=== PATIENT | female | born 1935 | race Caucasian/White ===

== ENCOUNTER 2023-05-16 17:24 | Emergency (ER) | payer MEDICARE, BC, SELFPAY ==
[2023-05-16 17:30] VITALS: BP 178/81; PULSE 79; RESP 18; TEMP 36.1; O2SAT 98; BMI 21.5
--- NOTE | 2023-05-16 17:33 | ED.GENADULT ---
HPI - General Adult General Date Seen: 05/16/23 Chief complaint: Laceration/Wound Stated complaint: right thumb lac, on blood thinners Time Seen by Provider: 05/16/23 17:28 Source: patient Mode of arrival: ambulatory Limitations: no limitations History of Present Illness HPI narrative: Patient is an 87-year-old woman who picked up the lid of the cat food can about an hour ago and sustained a small laceration on the tip of her right thumb. She has not been able to get it to stop bleeding with pressure. She is anticoagulated. No other complaints. Believes her tetanus to be up-to-date. Related Data Home Medications Medication Instructions Recorded Confirmed amlodipine 5 mg tablet 5 mg PO DAILY 05/16/23 05/16/23 ascorbic acid (vitamin C) 500 mg 500 mg PO DAILY 05/16/23 05/16/23 chewable tablet (Acerola C) aspirin 81 mg tablet,delayed 81 mg PO DAILY 05/16/23 05/16/23 release (Adult Aspirin Regimen) calcium carbonate 600 mg-vitamin cap PO 05/16/23 D3 10 mcg (400 unit) capsule glucosamine-chondroitin PO 05/16/23 levothyroxine 75 mcg tablet 75 mcg PO DAILY 05/16/23 05/16/23 (Euthyrox) melatonin 05/16/23 omega-3 fatty acids PO 05/16/23 sertraline 25 mg tablet (Zoloft) 25 mg PO DAILY 05/16/23 05/16/23 vitamin B complex (Complex B-100 1 tab PO DAILY 05/16/23 05/16/23 tablet,extended release) Allergies Allergy/AdvReac Type Severity Reaction Status Date / Time No Known Drug Allergies Allergy Verified 05/16/23 17:34 PFSH PFS Social History Smoking Status: Never smoker How often do you have a drink containing alcohol: never AUDIT-C Alcohol total score: 0 Non-prescribed substance use: denies use Exam Narrative: Exam Narrative: Vital signs reviewed In general, alert, well-appearing elderly woman. Gets around easily. Extremities: Examination of the right thumb shows a small flap laceration perhaps half a cm in total size with some venous bleeding. Distal CMS normal. Const: Vital Signs, click to edit/add: Vital Signs - 24 hr 05/16/23 17:30 Temperature 96.9 F L Pulse Rate [Pulse Oximeter] 79 Respiratory Rate 18 Blood Pressure [Le ft Upper Arm] 178/81 H Pulse Oximetry 98 Oxygen Delivery Me thod Room Air Course Course ED Course: The wound itself does not need repaired, it was is small and will heal without intervention. I recommended that we place a dressing with Gelfoam to help with bleeding. Leave this on for couple of days and then okay to remove. Return for any signs of infection or if ongoing bleeding despite treatment. Vital Signs Vital signs: Initial Vital Signs Temperature 96.9 F L 05/16/23 17:30 Temperature Source Temporal Artery Scan 05/16/23 17:30 Pulse Rate 79 05/16/23 17:30 Respiratory Rate 18 05/16/23 17:30 Blood Pressure 178/81 H 05/16/23 17:30 Blood Pressure Mean 113 H 05/16/23 17:30 Blood Pressure Position Supine 05/16/23 17:30 Pulse Oximetry 98 05/16/23 17:30 Oxygen Delivery Method Room Air 05/16/23 17:30 Vital Signs Temperature 96.9 F L 05/16/23 17:30 Pulse Rate 79 05/16/23 17:30 Respiratory Rate 18 05/16/23 17:30 Blood Pressure 178/81 H 05/16/23 17:30 Pulse Oximetry 98 05/16/23 17:30 Oxygen Delivery Method Room Air 05/16/23 17:30 Temperature 96.9 F L 05/16/23 17:30 Pulse Rate 79 05/16/23 17:30 Respiratory Rate 18 05/16/23 17:30 Blood Pressure 178/81 H 05/16/23 17:30 Pulse Oximetry 98 05/16/23 17:30 Oxygen Delivery Method Room Air 05/16/23 17:30 Discharge Plan Discharge Clinical Impression: Laceration of right thumb Patient Disposition: Home, Self-Care Condition: Stable Instructions: Laceration Without Closure (ED) Additional Instructions: I would recommend leaving this dressing on for the next couple of days and then carefully remove. If you develop signs of infection or bleeding continues despite treatment return to the emergency department. Prescriptions: No Action amlodipine 5 mg tablet 5 mg PO DAILY ascorbic acid (vitamin C) [Acerola C] 500 mg tablet,chewable 500 mg PO DAILY aspirin [Adult Aspirin Regimen] 81 mg tablet,delayed release (DR/EC) 81 mg PO DAILY Complex B-100 Tablet Extended Release 1 tab PO DAILY calcium carbonate-vitamin D3 600 mg-10 mcg (400 unit) capsule PO glucosamine-chondroitin [Cosamin DS] PO levothyroxine [Euthyrox] 75 mcg tablet 75 mcg PO DAILY melatonin omega-3 fatty acids [Fish Oil] PO sertraline [Zoloft] 25 mg tablet 25 mg PO DAILY Follow Up/Referrals: Amarjit Nye MD [Referring] - Stand Alone Forms: [facility] Info Instructions
--- NOTE | 2023-05-16 18:24 | ED.NURSE ---
dressing of gel foam and coban to pt's R thumb, pt bled through dressing, more gel foam added and redressed. after 20 minutes dressing remains d/i.
== END 2023-05-16 18:27 | disposition home or self-care (01) ==
LOC: ED 18:11
PROVIDERS: Emergency Provider Emergency Medicine; PCP Family Medicine
DX: S61.011A Laceration without foreign body of right thumb without damage to nail, initial encounter (principal); W26.8XXA Contact with other sharp object(s), not elsewhere classified, initial encounter
CPT/HCPCS: 99282; 99283

== ENCOUNTER 2024-01-27 12:17 | Emergency (ER) | payer MEDICARE, BC, SELFPAY ==
[2024-01-27 12:39] VITALS: BP 149/74; PULSE 71; RESP 18; TEMP 36.5; O2SAT 98; BMI 21.5
--- NOTE | 2024-01-27 13:26 | CRLHL7_ITS ---
For Patients: As a result of the Cures Act, medical imaging exams and procedure reports are released immediately into your electronic medical record. You may view this report before your referring provider. If you have questions, please contact your health care provider. INDICATION: Pain. TECHNIQUE: Thoracic spine two views. COMPARISON: Chest radiograph same day. FINDINGS: Bone demineralization and mild multilevel degenerative changes. Compression fractures of the T7 and T12 vertebra appear chronic in nature. No definite radiographic evidence of acute thoracic spine fracture. No additional osseous abnormality. IMPRESSION: Chronic appearing compression fractures of the T7 and T12 vertebra. CT would be recommended if further workup for acute fracture is deemed necessary. Dictated by Enrico Murillo MD @ 01/27/2024 2:35:12 PM (Electronically Signed)
--- NOTE | 2024-01-27 13:27 | CRLHL7_ITS ---
For Patients: As a result of the Century Cures Act, medical imaging exams and procedure reports are released immediately into your electronic medical record. You may view this report before your referring provider. If you have questions, please contact your health care provider. INDICATION: Pain. TECHNIQUE: Chest 2 views. COMPARISON: Thoracic radiographs same day. FINDINGS: No pneumothorax or pleural effusion. Lungs are clear. Cardiac and mediastinal contours are within normal limits. Upper abdomen and osseous structures as imaged show no acute abnormality. There are compression fractures of the T7 and T12 vertebra that appear chronic in nature. No definite radiographic evidence of acute osseous abnormality. Bone demineralization and degenerative changes. Aortic stent graft incompletely visualized. IMPRESSION: No evidence of acute cardiopulmonary disease. Dictated by Enrico Murillo MD @ 01/27/2024 2:33:22 PM (Electronically Signed)
--- NOTE | 2024-01-27 13:29 | ED_ITS ---
HPI - General Adult General Chief complaint: Back Injury/Pain Stated complaint: Back pain Time Seen by Provider: 01/27/24 12:18 History of Present Illness HPI narrative: Patient is an 88 year white female that developed periscapular pain with movement and with laying down over the last few days. She has not had any anterior chest pain no diaphoresis or nausea. She reports she had lumbar compression fractures in thoracic compression fractures in the past. She has had no leg swelling edema, bleeding or clotting problems, she has had no trauma or injury. She is very comfortable lying flat but if she moves or twists she feels some pain in her periscapular area on the left Related Data Home Medications ?Medication ?Instructions ?Recorded ?Confirmed amlodipine 5 mg tablet 5 mg PO DAILY 05/16/23 01/27/24 ascorbic acid (vitamin C) 500 mg 500 mg PO DAILY 05/16/23 01/27/24 chewable tablet (Acerola C) aspirin 81 mg tablet,delayed 81 mg PO DAILY 05/16/23 01/27/24 release (Adult Aspirin Regimen) calcium carbonate 600 mg-vitamin cap PO 05/16/23 D3 10 mcg (400 unit) capsule levothyroxine 75 mcg tablet 75 mcg PO DAILY 05/16/23 01/27/24 (Euthyrox) melatonin 05/16/23 vitamin B complex (Complex B-100 1 tab PO DAILY 05/16/23 01/27/24 tablet,extended release) Previous Rx's ?Medication ?Instructions ?Recorded tramadol 50 mg tablet 50 mg PO Q8H PRN pain #14 tabs 01/27/24 Allergies Allergy/AdvReac Type Severity Reaction Status Date / Time No Known Drug Allergies Allergy Verified 05/16/23 17:34 Review of Systems Status of ROS: Reports: 6 or more systems reviewed and unremarkable except as noted in History and below PFSH PFS Social History Smoking Status: Never smoker How often do you have a drink containing alcohol: never AUDIT-C Alcohol total score: 0 Non-prescribed substance use: denies use service: No Exam Narrative: Exam Narrative: Objective: Vital signs look within normal limits O2 sat excellent 90% Alert orient x3 no distress talk in even unlabored sentences Rolling the patient from a gurney and looking at her back she has some mild left periscapular pain, mild paravertebral tenderness in her thoracic spine at about the mid scapular level. No bleeding, bruising or ecchymosis. Lower extremities show more normal motion, pulse is regular Const: Vital Signs, click to edit/add: Vital Signs - 24 hr 01/27/24 12:39 Temperature 97.7 F Pulse Rate [Pulse Oximeter] 71 Respiratory Rate 18 Blood Pressure [Ri t Upper Arm] 149/74 H Pulse Oximetry 98 Oxygen Delivery Me thod Room Air Course Vital Signs Vital signs: Initial Vital Signs Temperature 97.7 F 01/27/24 12:39 Temperature Source Temporal Artery Scan 01/27/24 12:39 Pulse Rate 71 01/27/24 12:39 Respiratory Rate 18 01/27/24 12:39 Blood Pressure 149/74 H 01/27/24 12:39 Blood Pressure Mean 99 01/27/24 12:39 Blood Pressure Position Sitting 01/27/24 12:39 Pulse Oximetry 98 01/27/24 12:39 Oxygen Delivery Method Room Air 01/27/24 12:39 Vital Signs Temperature 97.7 F 01/27/24 12:39 Pulse Rate 71 01/27/24 12:39 Respiratory Rate 18 01/27/24 12:39 Blood Pressure 149/74 H 01/27/24 12:39 Pulse Oximetry 98 01/27/24 12:39 Oxygen Delivery Method Room Air 01/27/24 12:39 Temperature 97.7 F 01/27/24 12:39 Pulse Rate 71 01/27/24 12:39 Respiratory Rate 18 01/27/24 12:39 Blood Pressure 149/74 H 01/27/24 12:39 Pulse Oximetry 98 01/27/24 12:39 Oxygen Delivery Method Room Air 01/27/24 12:39 Medications Administered Medications: Discontinued Medications Generic Name Dose Route Start Last Admin Trade Name Freq PRN Reason Stop Dose Admin Tramadol HCl 50 mg 01/27/24 13:27 01/27/24 13:42 Tramadol Hcl 50 Mg Tablet PO 01/27/24 13:28 50 mg ONCE ONE Administration Medical Decision Making MDM Narrative Medical decision making narrative: [age] white female with periscapular pain on the left. I think at thi s time would be reasonable to get an x-ray of her chest and her thoracic spine. Disposition pending findings, will give her some oral tramadol now. Perhaps even some prednisone for few days would be helpful in some tramadol. She does seemed to have some success with plain Tylenol but not very much discomfort relief. Addendum 2:38 p.m.: The patient reports she gets Prolia injections in just had 1. This is done for osteoporosis. She has chronic appearing T7 and T12 compression fractures. I think most of her back pain is lateral and may be more of a paravertebral muscle strain. I think she can continue the Prolia. I would give her tramadol as needed. She can take Tylenol as well. Ice to the affected area of her back couple times a day if possible, would recommend follow-up with primary care in the next week to 10 days for reassessment Discharge Plan Discharge Clinical Impression: Acute thoracic back pain, Compression fracture of thoracic vertebra Patient Disposition: Home w/ Parent or Adult Condition: Improved Additional Instructions: Light activity, ice to the area that is affected 5 minutes to 10 minutes at a time 3 times a day if possible, Tylenol as needed, tramadol for more pain if needed, recheck with regular doctor in the next 3-5 days. Activity Level: Light activity Discharge Diet: Regular Prescriptions: New tramadol 50 mg tablet 50 mg PO Q8H PRN (Reason: pain) Qty: 14 0RF No Action amlodipine 5 mg tablet 5 mg PO DAILY ascorbic acid (vitamin C) [Acerola C] 500 mg tablet,chewable 500 mg PO DAILY aspirin [Adult Aspirin Regimen] 81 mg tablet,delayed release (DR/EC) 81 mg PO DAILY Complex B-100 Tablet Extended Release 1 tab PO DAILY calcium carbonate-vitamin D3 600 mg-10 mcg (400 unit) capsule PO levothyroxine [Euthyrox] 75 mcg tablet 75 mcg PO DAILY melatonin Follow Up/Referrals: Katharine Del Angel DO [Primary Care Provider] - Stand Alone Forms: [employer] Info Instructions
[2024-01-27] MEDS: TRAMADOL HCL 50 MG TABLET PO (13:42)
== END 2024-01-27 14:51 | disposition home or self-care (01) ==
LOC: ED 14:16
PROVIDERS: Emergency Provider Family Medicine; PCP Family Medicine
DX: M54.6 Pain in thoracic spine (principal); S22.000A Wedge compression fracture of unspecified thoracic vertebra, initial encounter for closed fracture
CPT/HCPCS: 71046; 72070; 99284; A9270

== ENCOUNTER 2024-04-29 13:45 | Outpatient (RCR) | payer MEDICARE, BC, SELFPAY | END 2024-08-27 23:59 | disposition home or self-care (01) | PROVIDERS: PCP Family Medicine; Visit Provider Family Medicine | DX: Z87.81 Personal history of (healed) traumatic fracture (principal); M54.6 Pain in thoracic spine; Z51.89 Encounter for other specified aftercare | CPT/HCPCS: 97110; 97116; 97140; 97162 ==

== ENCOUNTER 2025-01-26 09:54 | Outpatient (CLI) | payer MEDICARE, BC, SELFPAY ==
[2025-01-26 10:34] LABS: Chloride* 103 mmol/L (96-114); Potassium* 4.0 mmol/L (3.6-5.1); Sodium* 137 mmol/L (135-149)
[2025-01-26 10:37] LABS: Blood Urea Nitrogen* 29 mg/dL (7-30); Creatinine* 1.5 mg/dL (0.5-1.5); Estimated Glomerular Filt Rate 34 ml/min
[2025-01-26 10:38] LABS: Anion Gap 5 mEq/L (7-15); Calcium* 9.4 mg/dL (8.4-10.6); Carbon Dioxide* 29 mmol/L (20-32); Glucose* 89 mg/dL (60-115)
[2025-01-30 07:00] LABS: eGFR by CKD-EP 33 (>=60)
== END 2025-01-26 09:55 | disposition home or self-care (01) ==
PROVIDERS: PCP Family Medicine; Visit Provider Internal Medicine Nephrology
DX: N18.32 Chronic kidney disease, stage 3b (principal)
CPT/HCPCS: 36415; 80048; 82565; 82610

== ENCOUNTER 2025-02-27 12:20 | Emergency (ER) | payer MEDICARE, BC, SELFPAY ==
--- OUTSIDE RECORDS SUMMARY | 2025-02-10 14:30 | XMS_ITS | Encounter Summary ---
Author Organization [facility] Address [address] [place] [address] Care Team Providers Care [employer] Name Role Phone Katharine Del Angel DO Primary Care Provider [phone] Reason for Visit * Reason Comments Follow-up Encounter Details Date Type Department Care Team (Late st Contact Info) Description 02/10/2025 2:30 PM CDT Office Visit [facility] [address] [place] [address] Samir Greco MD [address] [place] [address] Stage 3b chronic kidney disease (HCC) (Primary Dx); Hypertensive chronic kidney disease with stage 1 through stage 4 chronic kidney disease, or unspecified chronic kidney disease; Renal artery stenosis (HCC) Social History Tobacco Use Types Packs/Day Years Used Date Smoking Tobacco: Former Cigarettes Smokeless Tobacco: Never Alcohol Use Standard Drinks/Week Comments Not Currently 0 (1 standard drink = 0.6 oz pur e alcohol) Comments Unknown Sex and Gender Information Value Date Recorded Sex Assigned at Not on file Legal Sex Female 11:39 AM EDT Gender Identity Not on file Sexual Orientation Not on file documented as of this encounter Last Filed Vital Signs Vital Sign Reading Time Taken Comments Blood Pressure 136/72 02/10/2025 2:31 PM CDT Pulse 87 02/10/2025 2:31 PM CDT Temperature - - Respiratory Rate - - Oxygen Saturation 98% 02/10/2025 2:31 PM CDT Inhaled Oxygen Concentration - - Weight 50.8 kg (112 lb) 02/10/2025 2:31 PM CDT Height 152.4 cm (5') 02/10/2025 2:31 PM CDT Body Mass Index 21.87 02/10/2025 2:31 PM CDT documented in this encounter Patient Instructions * Patient Instructions* Zahraa Wilson - 02/10/2025 2:30 PM CDT Ardie, Your blood pressure is ok without the blood pressure medication. Your kidney function is stable. We will make no changes and you can remain off the amlodipine. Continue to monitor your blood pressure. Follow-up in about 6 months with labs prior to the visit. Phil Greco MD We will contact you to schedule your 6 month follow up when the schedule becomes available. Labs should be completed 1-2 weeks prior. They will be faxed to [facility] Dr. Greco/ALBERT Vital documented in this encounter Progress Notes * Samir Greco MD - 02/10/2025 2:30 PM CDT Images from the original note were not included. Patient: Meghan Chery Date of : 1935 Chart: [id number] PCP: Katharine Del Angel DO Date of Service: 02/10/2025 Chief Complaint: CKD Stage 3b, LISANDRA, HTN Subjective: Ms. Chery was initially referred for abnormal kidney function. She has a history of chronic low back pain, hypertension, hyperlipidemia, peripheral artery disease and retinal artery occlusion. She had an endovascular repair of an abdominal aortic aneurism in April of 2017. She was also found tohave bilateral renal artery stenosis. The right renal artery was stented. Her renal function was normal preop and immediately postop. However by about a month postoperatively her creat was significantly elevated in the 1.6 range and peaked at 1.9 in August. She had been started on lisinopril at some point postoperatively and this was increased to 10 mg per day at one month postop. Her UA one month postop was wnl. She became hypertensive postoperatively and the bp came under control onlisinopril. Dr. Cintron saw her in October of 2017 and felt that her hui was likely either due to cholesterol emboli at the time of surgery or to hemodynamic effects of lisinopril in a patient with vascular disease.Dr. Zambrano did a a renal doppler that showed significant renal artery stenosis on the left, normalresistive indices. This had been seen at the time of surgery but only the right sided stenosis was stented. At a prior visit, she was mildly hypotensive, dizzy, and had fallen. Her diastolic BP's were as lowas 40's even. I reduced her lisinopril to 5mg and her BP was 120's/60's most of the time, some 110's or 130's systolic and rare 140. She was persistently hyperkalemic on lisinopril even low dose so in November 2022 I stopped this and put her on amlodipine. She is on 5mg and is tolerating this well without LE edema or any other side effects. Today, she reports running out of amlodipine a month ago and not refilling (we had talked about possibly trying off all BP medication). Her BP is slightly higher off, but is still 120's-130's/70's the majority of the time (two values 150/80 on stressful days). She feels well and had a great time with the wedding for her granddaughter in her yard. She has no CP, SOB, edema. Her Cr is stable at 1.5. SH: Two daughters, Tigre (lives up by Dorota [place]) and Carolin (lives locally) The following portions of the patient's chart were reviewed in this encounter and updated as appropriate: Tobacco Allergies Meds Problems Med Hx Surg Hx Fam Hx Active Problems Patient Active Problem List Diagnosis Stage 3b chronic kidney disease (HCC) Hyperkalemia Abdominal aortic aneurysm without rupture (HCC) Chronic low back pain Hypertensive chronic kidney disease with stage 1 through stage 4 chronic kidney disease, or unspecified chronic kidney disease Hypothyroidism Mixed hyperlipidemia Osteoporosis Renal artery stenosis (HCC) Right carotid artery stenosis Obstructive sleep apnea Review of Systems Patient denies chest pain, SOB at rest, nausea/vomiting, and fever/chills. Taking? Provider LT amLODIPine (NORVASC) 5 MG tablet Samir Greco MD Take 1 tablet (5 mg total) by mouth in the morning. Patient not taking: Reported on 02/10/2025 ascorbic acid (VITAMIN C) 250 MG tablet Kary Islas MD Take 250 mg by mouth 1 (one) time each day aspirin (ST AKIN) 81 MG EC tablet Kary Islas MD Take 81 mg by mouth in the morning. b complex vitamins capsule Kary Islas MD Take 1 capsule by mouth 1 (one) time each day Ferrous Sulfate (IRON PO) Kary Islas MD Take 1 tablet by mouth in the morning. levothyroxine (SYNTHROID, LEVOTHROID) 75 MCG tablet Kary Islas MD Take 75 mcg by mouth in the morning. Take 37.5 Mcg once a week and then 75 Mcg the other 6 days. . NON FORMULARY Kary Islas MD Take 1 packet by mouth 1 (one) time each day [employer] ([employer]) Nutritional Supplements (COMPLETE PROTEIN/VITAMIN SHAKE PO) Kary Islas MD Take by mouth Orbisonia-3 Fatty Acids (Fish Oil) 1200 MG capsule delayed-release Kary Islas MD Take by mouth Allergies Allergen Reactions Tramadol Itching Physical Exam BP 136/72 (BP Location: Right upper arm, Patient Position: Sitting, BP Cuff Size: Adult) Pulse 87 Ht 5' (1.524 m) Wt 112 lb (50.8 kg) SpO2 98% BMI 21.87 kg/m?? CONSTITUTIONAL: appears well today EYES: pupils equal, sclerae not icteric. RESPIRATORY: Clear to auscultation bilaterally, nl effort CARDIOVASCULAR: Regular rate and rhythm, no murmurs. no leg edema and stable GASTROINTESTINAL: bowel sounds active, not distended PSYCHIATRIC: Alert and pleasant INTEGUMENT: No visible rash on exposed skin MUSCULOSKELETAL: four limbs, no contractures Chemistry and Bone Mineral Lab Units 01/26/25 0000 10/11/24 1325 02/10/24 1402 12/08/23 13212/08/23 0000 SODIUM mEq/L 137 141 141 142 142 POTASSIUM mEq/L 4.0 4.3 4.7 4.1 4.1 CHLORIDE 103 103 105 106 106 CO2 mmol/L 29 30 26 25 25 ANION GAP -- -- 10 11 -- CALCIUM mg/dL 9.4 9.8 8.9 9.8 9.8 PHOSPHORUS mg/dL -- 3.7 -- 3.6 3.6 PTH pg/mL -- 50 -- -- -- GLUCOSE mg/dL 89 111* 99 94 94 ALBUMIN g/dL -- 3.9 -- 4.2 4.2 BUN mg/dL 29 34* 17 27* 27* CREATININE mg/dL 1.5 1.54* 1.43* 1.33* 1.33* EGFR 34 32* 36* 39* 39* CBC and Iron Studies Lab Units 10/11/24 1325 02/10/24 1402 12/08/23 1327 12/08/23 0000 HEMOGLOBIN g/dL 11.4* 10.8* 11* 11.0* MCV fL -- 95 95 95 FERRITIN ng/mL -- -- 185* 185.0* 185.0* TIBC ug/dL -- -- 274 274 IRON SATURATION % -- -- 20 -- Urine Lab Units 10/11/24 1433 ALB MG/G CREAT UR mg/g creat 23.5 Chemistry and Bone Mineral Lab Units 01/26/25 0000 EGFR BY CYSTATIN C 33* Imaging: CT Abd/Pelvis without contrast 07/21/2022: Mild scarring is present in both lung bases. There is no pleural effusion or basilar pneumothorax. No evidence of rib fracture deformity. Normal noncontrast enhanced liver. No calcified gallstones orbiliary obstruction. Pancreas is normal. Normal spleen. Stomach is distended. Adrenal glands normal. Simple cysts left kidney are unchanged. Unremarkable right kidney. No renal stone or hydronephrosis. Postop changes of aorto bi-iliac stent graft. Decreased size of the [place] aneurysm. No adenopathy. No free air, free fluid or bowel obstruction. Bladder normal. No pelvic soft tissue mass. Postop changes of hysterectomy. No abdominal wall mass or hernia. Chronic appearing compression deformitiesinvolving L4 L1 and T12. In the left upper quadrant, there is mild prominence of the jejunal wall. Renal Duplex 11/2017: IMPRESSION: 1. Patent right renal artery stent. 2. Elevated left renal artery velocities of 240 cm/s, which is indicative of a hemodynamically significant stenosis. 3. Abnormally elevated renal to aortic ratios are noted bilaterally, however this is likely due to low measured aortic velocity. Assessment and Plan: 1. CKD Stage 3b: 2/2 HUI and renovascular disease, may have underlying hypertensive nephrosclerosisas well. She had normal renal function before endovascular repair of an abdominal aortic aneurism. Creatinine was elevated at one month postoperatively and peaked in August 2017. Her urine analyseshave been consistently normal and urine protein has been negative. Renal function overall stable after although quite variable with Cr 1.3-2.0 and has been 1.5 range since being off lisinopril. -Renal function stable, has improved since being off ACEI and UA was normal in 2022 with no proteinuria -No albuminuria off ACEI - reassuring -KFRE suggests 2.4% risk of ESRD at 5 years, also reassuring (especially at age 89). This was shared with her today. -Trend renal function and CKD labs to monitor metabolic complications of CKD. 2. Hypertension with hypertensive chronic kidney disease. She is monitoring at home and BP control is actually controlled fairly well (BP 120's-130's/70's) without any BP therapy. 3. Hyperkalemia - resolved off ACEI. Monitor. 4. 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 She is on iron supplement. 5. LISANDRA: pt noted to have bilateral lisandra at the time of the AAA repair. She had stenting of the rightrenal artery. Renal doppler done on in November 2017 after this showed patent right renal artery stent. The left renal artery velocity was 240 cm/s indicating significant stenosis, had normal resistive indices. Left kidney is 8.9 cm and right kidney 9.9 cm. -Would not recommend intervention for L LISANDRA, data does not support this as Cr stable and BP is controlled 6. AAA without rupture - s/p EVAR by Dr. Zambrano. Asymptomatic. Continue good BP control. Return in about 6 months (around 08/13/2025) for follow-up with MD. Samir Greco MD [facility] Office: [phone] documented in this encounter Plan of Treatment Scheduled Orders Name Type Priority Associated Diagnoses Orde r Schedule Renal function panel Lab Routine Stage 3b chronic kidney disease (HCC) Expected: 07/31/2025 (Approximate), Expires: 02/10/2026 Hemoglobin Lab Routine Stage 3b chronic kidney disease (HCC) Expected: 07/31/2025 (Approximate), Expires: 02/10/2026 PTH, intact Lab Routine Stage 3b chronic kidney disease (HCC) Expected: 07/31/2025 (Approximate), Expires: 02/10/2026 documented as of this encounter Visit Diagnoses Diagnosis Stage 3b chronic kidney disease (HCC)- Primary Hypertensive chronic kidney disease with stage 1 through stage 4 chronic kidney disease, or unspecified chronic kidney disease Renal artery stenosis (HCC) documented in this encounter Care Teams [employer] Relationship Specialty Start Date End Date Katharine Del [place] [address] PCP - General Family Medicine 12/17/23 documented as of this encounter
--- OUTSIDE RECORDS SUMMARY | 2025-02-27 12:23 | XMS_ITS | Clinical Summary ---
Author Organization [facility] Address [address] [place] [id number] Care Team Providers Care Public Transit Specialist Name Role Phone Katharine Del Angel Primary Care Provider [phone] Allergies Active Allergy Reactions Criticality Noted Date Comments Tramadol Itching 02/05/2024 Medications melatonin 5 mg capsuleIndications :Other insomnia Take 1 Capsule (5 mg) by mouth at bedtime. 0 12/06/19 22 Active polyethylene glycoL (MIRALAX) 17 gram/scoop powderIndications: Chronic constipation 17g every other day 510 g 3 07/24/19 23 Active Additional Information Patient taking differently: DAILY PRN, 17g every other day, Reported on 02/05/2024 B Complex-Minerals tab Take by mouth once daily. 0 08/14/19 23 Active flynbceo-lteu-NI-c alcium-mins (Women's Daily Formula) 18 mg iron-400 mcg-500 mg Ca tab Take by mouth once daily. 0 08/14/19 23 Active ascorbic acid, vitamin C, (Vitamin C) 500 mg tablet Take 1 Tablet (500 mg) by mouth two times daily with meals. 0 08/14/19 23 Active aspirin (ECOTRIN) 81 mg enteric coated tablet Take 1 Tablet (81 mg) by mouth once daily with a meal. 0 08/14/19 23 Active medication order composer Take 2 Tablets by mouth two times daily. Focus Factor 0 08/14/19 23 Active calcium carbonate-vitamin D3, 500 mg-400 units, (OSCAL 500 + D) tablet Take 1 Tablet by mouth two times daily before meals. 0 12/03/19 Active docusate (COLACE) 100 mg capsuleIndications :Chronic constipation Take 2 Capsules (200 mg) by mouth once daily. 360 Capsule 1 12/03/19 Active amLODIPine (NORVASC) 5 mg tabletIndications: HTN (hypertension) Take 1 Tablet (5 mg) by mouth once daily. 90 Tablet 3 02/26/20 Active ferrous sulfate, 65 mg elemental, tablet Take 325 mg by mouth once daily with a meal. Active psyllium husk (METAMUCIL ORAL) Take by mouth. Active multivit with iron,minerals (SUPER FRANK-MINS ORAL) Take by mouth. Activ e levothyroxine (SYNTHROID) 75 mcg tabletIndications: Acquired hypothyroidism Take 1 Tablet (75 mcg) by mouth before breakfast. 90 Tablet 3 02/11/20 Active Active Problems Problem Noted Date Diagnosed Date Osteoporosis of multiple sites 05/31/2022 Overview (05/31/2022): Dexa May 2022. Recommend treat. Apt 06/2022 to discuss. History compression fracture. 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 EVAR with Right renal artery stenting. Dr. Zambrano CHANNING 01/2008 AHI-18 positional 05/19/2014 Colon polyp 05/03/2014 Overview (05/03/2014): Colonoscopy 04/2014 polyp, no follow up needed Carotid stenosis, right 05/12/2013 Retinal artery branch occlusion of right eye Right carotid bruit 05/05/2013 Femoral bruit 05/05/2013 Retinal microembolism 05/05/2013 Hand arthritis 02/07/2011 Unspecified sleep apnea 11/27/2010 Osteopenia 08/27/2009 Shingles 06/22/2009 Unspecified hearing loss 01/27/2007 Actinic keratosis 01/27/2007 Mixed hyperlipidemia 01/20/2007 Unspecified hypothyroidism 01/20/2007 Renal artery stenosis, [place] Overview (04/29/2017): 04/27/2017- Right renal artery angioplasty/stenting. Dr. Zambrano Resolved Problems Problem Noted Date Diagnosed Date Resolved Date Disorder of bone and cartilage, unspecified 01/27/2007 09/26/2010 Overview (01/27/2007): osteopenia Immunizations Immunization Administration Dates Next Due AMB Influenza, IIV3 (Age >=3 years)(Flu Clinic O nly) 06/26/2011 Influenza, High-dose Inactivated 08/11/2016,04/13 Influenza, IIV3 (Age >=3 years) 05/06/2013,04/30 Pneumococcal Poly,23-Valent (Pneumovax) 05/06/20 13 Pneumococcal conj 13-Valent (Prevnar 13) 017 Td (Age >=7 Years) 02/14/1997 Td, Preservative Free (age >= 7 Years) 0 Tdap 08/11/2016 Family History Medical History Relation Name Comments Heart Disease Father d PA 59 yo Heart Disease Maternal Grandfather 89 yo PA Other Maternal Grandmother Bright' s Dz of kidney Arthritis Mother Cancer-breast Mother Other Mother d 94 yo Alzheim er's Arthritis Other RA in great aun t Relation Name Status Comments Father Maternal Grandfather Maternal Grandmother Mother Other Social History Tobacco Use Types Packs/Day Years Used Date Smoking Tobacco: Former Cigarettes 0.3 45 1 08/20/1967 - 06/19/2013 Smokeless Tobacco: Never Tobacco Cessation:Counseling Given: Yes Alcohol Use Standard Drinks/Week Comments Yes 0 (1 standard drink = 0.6 oz pure alcohol) rare glass of wine about once every 3 months PHQ-2 Answer Date Recorded PHQ-2 TOTAL SCORE 1 12/08/2023 Social Connections Answer Date Recorded Do you often feel lonely or isolated from those around you? 0 12/08/2023 Alcohol Use Answer Date Recorded How often do you have a drink containing alcohol ? 1 12/02/2022 How many drinks containing a lcohol do you have on a typical day when you are drinking? 0 12/02/2022 How often do you have five or more drinks on one occasion? 0 12/02/2022 Financial Resource Strain Answer Date R ecorded Difficulty of Paying Living Expenses 3 12/08/2023 Difficulty of Paying Living Expenses Not on file 12/08/2023 Food Insecurity Answer Date Recorded Do you worry your food will run out before you are able to buy more? 1 12/08/2023 Transportation Needs Answer Date Record ed Does lack of transportation keep you from medica l appointments? 1 12/08/2023 Does lack of transportation keep you from work, meetings or getting things that you need? 1 12/08/2023 Housing Stability Answer Date Recorded What is your housing situation today? 1 12/08/2023 Utilities Answer Date Recorded Do you have trouble paying f or utilities (for example, heat, electricity, water, phone)? 1 12/08/2023 Comments No Sex and Gender Information Value Date Recorded Sex Assigned at Not on file Legal Sex Female 5:49 AM SENIOR SOFTWARE DEVELOPMENT ENGINEER Gender Identity Not on file Sexual Orientation Not on file Occupation Industry Job Start Date Job End Date Not on file Not on file Not on file Not on file Obstetrics History Para Term AB IAB SAB Ectopic Multiple Livin g Live Births 6 5 5 0 1 0 1 0 0 5 Date Outcome GA Total Labor Labor/2nd/3rd Weight Sex Type Anes PTL Mary A1 A5 Name Clin SAB Term Term Term Term Term Last Filed Vital Signs Vital Sign Reading Time Taken Comments Blood Pressure 124/72 02/10/2024 1:09 PM CDT Pulse 83 02/10/2024 1:09 PM CDT Temperature 37.1 C (98.7 F) 04/20/2022 4:54 PM CDT Respiratory Rate 16 04/20/2022 4:54 PM CDT Oxygen Saturation 98% 02/10/2024 1:09 PM CDT Inhaled Oxygen Concentration - - Weight 49.9 kg (110 lb) 02/10/2024 1:09 PM CDT Height 152.4 cm (5') 12/08/2023 11:41 AM CDT Body Mass Index 21.48 12/08/2023 11:41 AM CDT Plan of Treatment Health Maintenance Due Date Last Done Comments Zoster (shingles) series for age 50+ (1 of 2) 1987 RSV vaccine for adults or (1 - 1-dose 75+ series) 2012 COVID-19 vaccine series ( - season) 2024 BMI (ht and wt on same day) for age 18+ 12/07/2024 12/08/2023, 03/26/2023, 01/23/2023, Additional history exists Medicare Wellness for age 65+ 12/08/2024 12/08/2023, 12/02/2022, 10/20/2018, Additional history exists Depression screening for age 12+ 12/09/2024 12/10/2023, 12/09/2023, 12/08/2023, Additional history exists Influenza Vaccine (#1) 2025 7, 05/08/2014, 05/06/2013, Additional history exists Tetanus booster 08/11/2026 08/11/2016, 08/2009, 02/14/1997 Pneumococcal series for age 50+ Completed 08/11/2016, 05/06/2013 DEXA/DXA scan for age 65+ Completed 2021, 03/08/2015, 08/14/2009 Hepatitis B series for 19+ Aged Out N o longer eligible based on patient's age to complete this topic Medical Devices Implanted Type Area Rackman Device Identifier Shelf Expiration Date Model / Serial / Lot Stent Aaa [id number] Zenith Flex Bif - [id number] Implanted:Qty: 1 on 04/27/2017 by Sandeep Zambrano MD at [facility] N/A: Aorta Cook Aortic Intervention 04/07/2019 [id number]-24-9 6-ZT# / / [id number] Stent Aaa 13x90 Spiral Z Limb Iliac - [id number] Implanted:Qty: 1 on 04/27/2017 by Sandeep Zambrano MD at [facility] Left: Iliac Artery Cook Aortic Intervention 08/13/2019 [id number]-13-9 0-ZT# / / [id number] Stent Aaa 13x56 Spiral Z Limb Iliac - [id number] Implanted:Qty: 1 on 04/27/2017 by Sandeep Zambrano MD at [facility] Right: Iliac Artery Cook Aortic Intervention 09/03/2019 [id number]-13-5 6-ZT# / / [id number] Patch Vasc 0.8x8cm Xenosure [employer] Pericardial - [id number] Implanted:Qty: 1 on 04/27/2017 by Sandeep Zambrano MD at [facility] Femoral Artery [employer] 11/07/2022 0.8P8# / / [id number] Procedures Procedure Name Priority Date/Time Associated Diagnosis Comments XR DXA BONE DENSITY 2 SITES AXIAL AND 1 SITE PERIPHERAL Routine 05/19/2022 12:26 PM SENIOR SOFTWARE DEVELOPMENT ENGINEER Nontraumatic compression fracture of L4 vertebra, sequela Osteopenia, unspecified location Other specified disorders of bone density and structure, multiple sites from Last 3 Months or Most Recently Relevant to Health Maintenance Results * (ABNORMAL) XR DXA BONE DENSITY 2 SITES AXIAL AND 1 SITE PERIPHERAL (05/19/2022 12:26 PM SENIOR SOFTWARE DEVELOPMENT ENGINEER) Anatomical Region Laterality Modality LUMBAR SPINE Other Impressions 05/26/2022 8:06 AM SENIOR SOFTWARE DEVELOPMENT ENGINEER Osteoporosis. RECOMMENDATIONS: The National Osteoporosis Foundation recommends pharmacologic treatment for patients with T-scores of -2.5 or less, patients with prior history of fragility fractures, or patients with 10-year probability of greater than 3% at hips or greater than 20% of suffering major osteoporotic fractures. Recommend continued optimization of calcium and vitamin D intake through dietary means and/or supplementation and regular exercise. Consider pharmacologic therapy for osteoporosis. Follow-up bone density reading in 2 years if therapy initiated to assess therapeutic efficacy. Emily Vieira PA-C [facility] 05/26/2022 Narrative 05/26/2022 8:06 AM SENIOR SOFTWARE DEVELOPMENT ENGINEER For Patients: Results are automatically released to your [employer] ([email or web address]) account once available, in compliance with federal regulations. This means that you may see your results before your provider has had a chance to review them. Please allow 2-3 business days for your provider to comment on the results. XR DXA Bone Mineral Density (BMD) EXAM LOCATION: [address] [address] PATIENT NAME: Meghan Chery DATE OF : 1935 EXAM DATE: 05/19/2022 REQUESTING PROVIDER: Katharine Del Angel DO GENDER AT : female HEIGHT: 5' 1.5 (10/03/2021) WEIGHT: 110 lb 1.6 oz (05/14/2022) MENOPAUSAL STATUS: Postmenopausal RACE/ETHNICITY: White RISK FACTORS: Advanced Age, Family History of Osteoporosis, Height Loss (2 inches or more), History of Fragility Fracture (at a major site), Renal Failure, Smoking (prior), Weight < 127 lbs. and White Race CURRENT MEDICATION FOR BONE LOSS: NONE INDICATION: Follow-up of existing osteopenia COMPARISON DATE(S): 2014 DXA scans are compared to prior studies for a patient only when the two (or more) studies were performed on the same scanner. It is not possible to compare data generated on one scanner to data from another because there are not standards in DXA equipment. This applies even if the two scanners are made by the same agricultural researcher. PROCEDURE: Dual-energy x-ray absorptiometry performed with routine technique. Reporting is completed in the form of a T-score. The T-score represents the standard deviation from peak bone mass based on young healthy adult. A Z-score is used for diagnosis in premenopausal women, and for men under the age of 50. FINDINGS: RESULT LUMBAR SPINE L1 - L4 BMD: 1.097 g/cm2 T-Score: - 0.7 Z-Score: + 1.7 Change from prior in 2014: Decrease 0.6%. RESULTS FEMUR Left femoral neck BMD: 0.680 g/cm2 T-Score: - 2.6 Z-Score: + 0.1 Change from prior in 2014: Decrease 8.5%. Right femoral neck BMD: 0.695 g/cm2 T-Score: - 2.5 Z-Score: - 0.2 Change from prior in 2015: Decrease 10.7%. Left hip BMD: 0.630 g/cm2 T-Score: - 3.0 Z-Score: - 0.4 Change from prior in 2015: Decrease 19.5%. Right hip BMD: 0.634 g/cm2 T-Score: - 3.0 Z-Score: - 0.3 Change from prior in 2015: Decrease 19.7%. RESULT FOREARM Left Forearm distal radius BMD: 0.458 g/cm2 T-Score: - 4.8 Z-Score: - 1.6 Change from prior: None WHO criteria: Normal: T-score at or above -1 SD Osteopenia: T-score between -1.1 and -2.4 SD Osteoporosis: T-score at or below -2.5 SD Katharine Del Angel DO DEXA Final Resu lt from Last 3 Months or Most Recently Relevant to Health Maintenance Insurance [place] BLUE HB ONLY MEDICARE PPS MEDICARE PB ONLY [facility] HB ONLY [facility] MEDICARE PART B HB ONLY MEDICARE PART B HB ONLY MEDICARE PART A HB ONLY [facility] HB ONLY [facility] MEDICARE PB ONLY Advance Directives * Full Code (Latest Code Status on File) Date Activated Date Inactivated Comments 04/27/2017 4:48 PM 04/29/2017 7:27 PM * Full Code Date Activated Date Inactivated Comments 04/27/2017 9:24 AM 04/27/2017 4:48 PM * Full Code Date Activated Date Inactivated Comments 08/12/2013 10:28 AM 08/14/2013 1:03 PM * Full Code Date Activated Date Inactivated Comments 08/12/2013 5:40 AM 08/12/2013 10:28 AM Care Teams Public Transit Specialist Relationship Specialty Start Date End Date Katharine Del Angel [place] [address] [address] PCP - General Family Practice 03/06/22
--- OUTSIDE RECORDS SUMMARY | 2025-02-27 12:23 | XMS_ITS | Encounter Summary ---
Author Organization [facility] Address [address] [place] [address] Care Team Providers Care Clamp Carrier Operator Name Role Phone Katharine Del Angel DO Primary Care Provider [phone] Encounter Details Date Type Department Care Team (Late st Contact Info) Description 08/08/2024 Orders Only [facility] [address] [place] [address] Samir Greco MD [address] [place] [address] Stage 3b chronic kidney disease (HCC) Social History Tobacco Use Types Packs/Day [...] on file documented as of this encounter Plan of Treatment Not on file documented as of this encounter Procedures Procedure Name Priority Date/Time Associated Diagnosis Comments HEMOGLOBIN Routine 10/11/2024 1:25 PM CDT Stage 3b chronic kidney disease (HCC) PTH, INTACT Routine 10/11/2024 1:25 PM CDT Stage 3b chronic kidney disease (HCC) RENAL FUNCTION PANEL Routine 10/11/2024 1:25 PM CDT Stage 3b chronic kidney disease (HCC) documented in this encounter Results * PTH, intact (10/11/2024 1:25 PM CDT) Parathyroid Hormone, Intact 50 16 - 77 pg/mL [facility] Comment: Interpretive Guide Intact PTH Calcium ------- Normal Parathyroid Normal Normal Hypoparathyroidism Low or Low Normal Low Hyperparathyroidism Primary Normal or High High Secondary High Normal or Low Tertiary High High Non-Parathyroid Hypercalcemia Low or Low Normal High Blood specimen (specimen) Venous blood / Unknown 10/11/2024 1:25 PM CDT 10/11/2024 1:27 PM CDT Narrative Resulting Agency Comment Performing Organization Information: Site ID: [id number] Name: [id number] Address: [address] [place] [phone] Director: Pancho Gentile Samir Greco MD LAB BLOOD ORDERABLES Final Re sult Performing Organization Address City/[facility] Co de Phone Number [id number] [address] [place] [phone] * (ABNORMAL) Hemoglobin (10/11/2024 1:25 PM CDT) Hemoglobin 11.4(L) 11.7 - 15.5 g/dL [facility] Blood specimen (specimen) Venous blood / Unknown 10/11/2024 1:25 PM CDT 10/11/2024 1:27 PM CDT Narrative Resulting Agency Comment Performing Organization Information: Site ID: Name: [id number] Address: [address] [place] [phone] Director: Pancho Gentile Samir Greco MD LAB BLOOD ORDERABLES Final Re sult Performing Organization Address City/[facility]/ZIP Co de Phone Number [facility] [address] [place] [address] * (ABNORMAL) Renal function panel (10/11/2024 1:25 PM CDT) Glucose 111(H) 65 - 99 mg/dL [id number] Comment: Fasting reference interval For someone without known diabetes, a glucose value between 100 and 125 mg/dL is consistent with prediabetes and should be confirmed with a follow-up test. BUN 34(H) 7 - 25 mg/dL [facility] Creatinine 1.54(H) 0.60 - 0.95 mg/dL [facility] eGFR CKD-EPI CR 2020 32(L) > OR = 60 mL/min/1.7 3m2 [facility] BUN/Creatinine Ratio 22 6 - 22 (calc) [facility] Sodium 141 135 - 146 mmol/L [facility] Potassium 4.3 3.5 - 5.3 mmol/L [facility] Chloride 103 98 - 110 mmol/L [facility] Bicarbonate (CO2) 30 20 - 32 mmol/L [facility] Calcium 9.8 8.6 - 10.4 mg/dL [facility] Phosphorus 3.7 2.1 - 4.3 mg/dL [facility] Albumin 3.9 3.6 - 5.1 g/dL [facility] Blood specimen (specimen) Venous blood / Unknown 10/11/2024 1:25 PM CDT 10/11/2024 1:27 PM CDT Narrative Resulting Agency Comment Performing Organization Information: Site ID: [id number] Name: [facility] Address: [address] [place] [phone] Director: Pancho Gentile us Samir Greco MD LAB BLOOD ORDERABLES Final Re sult [facility] [address] [place] [address] documented in this encounter Visit Diagnoses Diagnosis Stage 3b chronic kidney disease (HCC) documented in this encounter Care Teams Clamp Carrier Operator Relationship Specialty Start Date End Date Katharine Del Angel DO [address] [place] [address] PCP - General Family Medicine 12/17/23 documented as of this encounter
--- OUTSIDE RECORDS SUMMARY | 2025-02-27 12:23 | XMS_ITS | Clinical Summary ---
Author Organization [facility] [place] Address [address] [place] [address] Phone Care Team Providers Care Bridal Sales Consultant Name Role Phone Katharine Del Angel Primary Care Provider [phone] Allergies Active Allergy Reactions Criticality Noted Date Comments Tramadol Itching 02/05/2024 Medications aspirin (ST AKIN) 81 MG EC tablet Take 81 mg by mouth in the morning. 08/14/19 23 Active Ferrous Sulfate (IRON PO) Take 1 tablet by mouth in the morning. 08/14/19 23 Active levothyroxine (SYNTHROID, LEVOTHROID) 75 MCG tablet Take 75 mcg by mouth in the morning. Take 37.5 Mcg once a week and then 75 Mcg the other 6 days. . 12/10/19 24 Active b complex vitamins capsule Take 1 capsule by mouth 1 (one) time each day Active ascorbic acid (VITAMIN C) 250 MG tablet Take 250 mg by mouth 1 (one) time each day Active amLODIPine (NORVASC) 5 MG tablet Take 1 tablet (5 mg total) by mouth in the morning. 90 tablet 3 02/18/20 24 Active Additional Information Patient not taking.Reported on 02/10/2025 [place]-3 Fatty Acids (Fish Oil) 1200 MG capsule delayed-release Take by mouth Active Nutritional Supplements (COMPLETE PROTEIN/VITAMIN SHAKE PO) Take by mouth Active NON FORMULARY Take 1 packet by mouth 1 (one) time each day [place] ([employer]) Active Calcium Carb-Cholecalci ferol 500-10 MG-MCG tablet Take 1 tablet by mouth 1 (one) time each day Calcium, magnesium and zinc tablets 12/03/19 025 Discontinued Docusate Sodium (DSS) 100 MG capsule Take 200 mg by mouth in the morning. 12/03/19 23 025 Discontinued fluticasone (FLONASE) 50 MCG/ACT nasal spray Administer 2 sprays into affected nostril(s) in the morning. 12/08/19 24 025 Discontinued glucosamine-cho ndroitin 500-400 MG tablet Take 1 tablet by mouth in the morning. 025 Discontinued Multiple Vitamin (multivitamin) capsule Take 1 capsule by mouth 1 (one) time each day 025 Discontinued Misc Natural Products (NEURIVA PO) Take by mouth 025 Discontinued Active Problems Problem Noted Date Diagnosed Date Renal artery stenosis 02/15/2024 Overview (02/15/2024): 04/27/2017- Right renal artery angioplasty/stenting. Dr. Zambrano Osteoporosis 05/31/2022 Overview (02/15/2024): Dexa May 2022. Recommend treat. Apt 06/2022 to discuss. History compression fracture. Hyperkalemia 04/03/2022 Stage 3b chronic kidney disease 12/23/2018 Chronic low back pain 08/26/2017 Hypertensive chronic kidney disease with stage 1 through stage 4 chronic kidney disease, or unspecified chronic kidney disease 05/28/2017 Abdominal aortic aneurysm without rupture 2015 Overview (02/15/2024): 4.6 x 4.6 cm with moderate mural thrombosis on US 01/31/16 -04/27/2017. EVAR with Right renal artery stenting. Dr. Zambrano Obstructive sleep apnea 05/19/2014 Right carotid artery stenosis 05/12/2013 Hypothyroidism 01/20/2007 Mixed hyperlipidemia 01/20/2007 Resolved Problems Problem Noted Date Diagnosed Date Resolved Date Peripheral vascular disease 04/15/2017 02/15/2024 Encounters Date Type Department Care Team Description 02/10/2025 2:30 PM CDT Office Visit [facility] [address] [place] [address] Samir Greco MD Stage 3b chronic kidney disease (HCC) (Primary Dx); Hypertensive chronic kidney disease with stage 1 through stage 4 chronic kidney disease, or unspecified chronic kidney disease; Renal artery stenosis (HCC) 02/07/2025 Office Communication [facility] [address] [place] [address] Vish Hansen 01/26/2025 Results Follow-Up [facility] [address] [place] [phone] Marry Love RN 01/23/2025 Telephone [facility] [address] [place] [phone] Zahraa Wilson 01/16/2025 Orders Only [facility] [place] [address] [address] Samir Greco MD Stage 3b chronic kidney disease (HCC) from Last 3 Months Family History Medical History Relation Comments Heart disease Father Heart disease Maternal Grandfather Alzheimer's disease Mother Arthritis Mother Breast cancer Mother Relation Status Comments Father Maternal Grandfather Mother Social History Tobacco Use Types Packs/Day Years [...] on file Sexual Orientation Not on file Last Filed Vital Signs Vital Sign Reading [...] Mass Index 21.87 02/10/2025 2:31 PM CDT Plan of Treatment Health Maintenance Due Date Last Done Comments Pneumococcal Vaccine: 50+ Ye ars (1 of 2 - PCV) 1954 Influenza Vaccine (#1) 2025 Hepatitis B Vaccine Aged Out No longe r eligible based on patient's age to complete this topic Procedures Procedure Name Priority Date/Time Associated Diagnosis Comments CYSTATIN C WITH EGFR Routine 01/26/2025 Stage 3b chronic kidney disease (HCC) BASIC METABOLIC PANEL Routine 01/26/2025 Stage 3b chronic kidney disease (HCC) from Last 3 Months Results * (ABNORMAL) Cystatin C with Estimated Glomerular Filtration Rate (eGFR), Serum (01/26/2025) Cystatin C 1.82(H) PRINT/EXT ERNAL (NON-INTERFACE D LABS) eGFR by Cystatin C 33(L) PRINT/EXTERNAL (NON-INTERFACE D LABS) 01/26/2025 us Samir Greco MD LAB BLOOD ORDERABLES Final Re sult PRINT/EXTERNAL (NON-INTERFACED LABS) * Basic metabolic panel (01/26/2025) Sodium 137 mEq/L PRINT/EXTE RNAL (NON-INTERFACE D LABS) Potassium 4.0 mEq/L PRINT/EXTE RNAL (NON-INTERFACE D LABS) Chloride 103 PRINT/EXTE RNAL (NON-INTERFACE D LABS) Carbon Dioxide 29 mmol/L PRINT /EXTERNAL (NON-INTERFACE D LABS) Calcium 9.4 mg/dL PRINT/EXTE RNAL (NON-INTERFACE D LABS) BUN 29 mg/dL PRINT/EXTE RNAL (NON-INTERFACE D LABS) Creatinine 1.5 mg/dL PRINT/EXT ERNAL (NON-INTERFACE D LABS) Glucose 89 mg/dL PRINT/EXTE RNAL (NON-INTERFACE D LABS) eGFR 34 PRINT/EXTE RNAL (NON-INTERFACE D LABS) Blood Venous blood / Unknown 01/26/2025 us Samir Greco MD LAB BLOOD ORDERABLES Final Re sult PRINT/EXTERNAL (NON-INTERFACED LABS) from Last 3 Months Insurance Medicare [facility] Care Teams Bridal Sales Consultant Relationship Specialty Start Date End Date Katharine Del Angel [place] [address] [place] [address] PCP - General Family Medicine 12/17/23
--- OUTSIDE RECORDS SUMMARY | 2025-02-27 12:23 | XMS_ITS | Encounter Summary ---
Author Organization [facility] [place] Address [address] [place] [address] Care Team Providers Care Chief Wheelage Clerk Name Role Phone Katharine Del Angel DO Primary Care Provider [phone] Encounter Details Date Type Department Care Team (Late st Contact Info) Description 02/07/2025 Office Communication [facility] [place] [address] [place] [address] Vish Hansen [address] [place] [address] Social History Tobacco Use Types Packs/Day Years [...] on file documented as of this encounter Miscellaneous Notes * Telephone Encounter - Vish Hansen - 02/07/2025 3:16 PM CDT Paperwork completed. Pre-reg finished * Telephone Encounter - Vish Hansen - 02/07/2025 3:10 PM CDT LVMTCB about finishing pre-reg prior to 02/10 CVA appt. Primary number seemed to connect but no response before disconnecting. LVM on secondary number. documented in this encounter Plan of Treatment Not on file documented as of this encounter Visit Diagnoses Not on filedocumented in this encounter Care Teams Chief Wheelage Clerk Relationship Specialty Start Date End Date Katharine Del Angel DO [address] [place] [address] PCP - General Family Medicine 12/17/23 documented as of this encounter
--- OUTSIDE RECORDS SUMMARY | 2025-02-27 12:23 | XMS_ITS | Encounter Summary ---
Author Organization [facility] Address [address] [place] [address] Care Team Providers Care Substation Maintenance Technician Name Role Phone Katharine Del Angel DO Primary Care Provider [phone] Encounter Details Date Type Department Care Team (Late st Contact Info) Description 01/26/2025 Results Follow-Up [facility] [address] [place] [address] Marry Love, PATO [address] [place] [address] Social History Tobacco Use Types [...] on filedocumented in this encounter Care Teams Substation Maintenance Technician Relationship Specialty Start Date End Date Katharine Del Angel DO [address] [place] [address] PCP - General Family Medicine 12/17/23 documented as of this encounter
--- OUTSIDE RECORDS SUMMARY | 2025-02-27 12:23 | XMS_ITS | Encounter Summary ---
Author Organization [facility] Address [address] [place] [address] Care Team Providers Care Underground Mine Superintendent Name Role Phone Katharine Del Angel DO Primary Care Provider [phone] Encounter Details Date Type Department Care Team (Late st Contact Info) Description 01/16/2025 Orders Only [facility] [address] [place] [address] Samir Greco MD [address] [address] Stage 3b chronic kidney disease [...] 01/26/2025 Stage 3b chronic kidney disease (HCC) documented in this encounter Results * (ABNORMAL) Cystatin C with Estimated Glomerular Filtration Rate (eGFR), Serum (01/26/2025) Cystatin C 1.82(H) PRINT/EXT ERNAL (NON-INTERFACE D LABS) eGFR by Cystatin C 33(L) PRINT/EXTERNAL (NON-INTERFACE D LABS) 01/26/2025 Samir Greco MD LAB BLOOD ORDERABLES Final Re sult Performing Organization Address City/[facility]/ZIP Co de Phone Number PRINT/EXTERNAL (NON-INTERFACED LABS) * Basic metabolic panel [...] LABS) Blood Venous blood / Unknown 01/26/2025 Samir Greco MD LAB BLOOD ORDERABLES Final Re sult Performing Organization Address City/[facility]/ZIP Co de Phone Number PRINT/EXTERNAL (NON-INTERFACED LABS) documented in this encounter Visit Diagnoses Diagnosis Stage 3b chronic kidney disease (HCC) documented in this encounter Care Teams Underground Mine Superintendent Relationship Specialty Start Date End Date Katharine Del Angel DO [address] [facility] [address] PCP - General Family Medicine 12/17/23 documented as of this encounter
--- OUTSIDE RECORDS SUMMARY | 2025-02-27 12:23 | XMS_ITS | Encounter Summary ---
Author Organization [facility] [place] Address [address] [place] [address] Care Team Providers Care Environmental Technology Professor Name Role Phone Katharine Del Angel DO Primary Care Provider Encounter Details Date Type Department Care Team (Late st Contact Info) Description 01/23/2025 Telephone [facility] [place] [address] [place] [address] Zahraa Wilson [address] [facility] [address] [facility] [address] [place] [address] Social History Tobacco Use Types Packs/Day Years [...] encounter Miscellaneous Notes * Telephone Encounter - Zahraa Wilson - 01/23/2025 4:02 PM CDT Spoke to patient regarding previsit labs to be completed prior to their office visit. Orders Faxed to [facility] documented in this encounter Plan of Treatment Not on file documented as of this encounter Visit Diagnoses Not on filedocumented in this encounter Care Teams Environmental Technology Professor Relationship Specialty Start Date End Date Katharine Del Angel DO [address] [place] [address] PCP - General Family Medicine 12/17/23 documented as of this encounter
[2025-02-27 12:26] VITALS: BP 151/79; PULSE 86; RESP 18; TEMP 36.3; O2SAT 97; BMI 21.1
--- NOTE | 2025-02-27 12:57 | CRLHL7_ITS ---
For Patients: As a result of the Cures Act, medical imaging exams and procedure reports are released immediately into your electronic medical record. You may view this report before your referring provider. If you have questions, please contact your health care provider. Indication: Lumbar back pain. Technique: Two views of the lumbar spine. Comparison: 04/02/2015. Limited correlation to MRI dated 03/13/2022 due to metal artifact Findings: Chronic grade 1 anterolisthesis L4-5. New mild L4 compression fracture compared to 2014. Chronic T12 compression fracture. Other areas of mild wedging. Moderate degenerative disc disease. Endovascular stent graft. Impression: 1. New L4 compression fracture compared to 2014. Follow-up CT could be performed for evaluation. Dictated by Keaton Barnett MD @ 02/27/2025 2:03:31 PM (Electronically Signed)
--- NOTE | 2025-02-27 12:57 | ED.GENADULT ---
HPI - General Adult General Time Seen by Provider: 12:58 Date Seen: 02/27/25 Chief complaint: Back Injury/Pain Stated complaint: lower back pain Time Seen by Provider: 02/27/25 12:36 Source: patient Mode of arrival: ambulatory Limitations: no limitations and physical limitation History of Present Illness HPI narrative: Meghan is a 89-year-old female with osteoporosis, hypothyroidism, hypertension presents emergency department via private car and with daughter with lower back pain. Patient does have a history of thoracic compression fractures in the past. She states last Thursday she was getting ready to go to a picnic with her son, while she was walking she felt increased pain to her left lower lumbar area. She states there is some radiation down the left part of her leg to her knee. She denies any urinary or bowel incontinence or retention. She has been wearing her 's back brace. She has been taking Tylenol 1000 mg for the pain. She did get tramadol in the past which did not make her feel well. She denies any weakness of that left lower extremity, no tingling, paresthesias or numbness. She feels that sometimes she has to grab her proximal left leg due to the pain. No recent falls. He does get some abdominal discomfort but denies any pain at this time. She has had normal bowel movements and urinary habits. No fevers or chills. No weight loss. No night sweats. Related Data Home Medications ?Medication ?Instructions ?Recorded ?Confirmed amlodipine 5 mg tablet 5 mg PO DAILY 05/16/23 02/27/25 ascorbic acid (vitamin C) 500 mg 500 mg PO DAILY 05/16/23 02/27/25 chewable tablet (Acerola C) aspirin 81 mg tablet,delayed 81 mg PO DAILY 05/16/23 02/27/25 release (Adult Aspirin Regimen) calcium 600 mg (as cap PO 05/16/23 carbonate)-vitamin D3 10 mcg (400 unit) capsule levothyroxine 75 mcg tablet 75 mcg PO DAILY 05/16/23 02/27/25 (Euthyrox) melatonin 05/16/23 vitamin B complex (Complex B-100 1 tab PO DAILY 05/16/23 02/27/25 tablet,extended release) Allergies Allergy/AdvReac Type Severity Reaction Status Date / Time No Known Drug Allergies Allergy Verified 02/27/25 12:32 Review of Systems Status of ROS: Reports: 10 or more systems reviewed and unremarkable except as noted in History and below [facility] Social History Smoking Status: Never smoker How often do you have a drink containing alcohol: never AUDIT-C Alcohol total score: 0 Non-prescribed substance use: denies use service: No Exam Narrative: Exam Narrative: General: No obvious distress, sitting comfortably HEENT: Pupils equal round reactive to light, extraocular muscles intact Neck: Supple, from Lungs: Clear to auscultation bilaterally Heart: Normal sinus rhythm S1-S2 Abdomen: Bowel sounds present, soft, nontender in all 4 quadrants Muscle skeletal: Tender to palpation the lower lumbar paraspinal musculature, L4-L5, no midline tenderness, no step-offs or saddle anesthesia Straight leg raise and crossover negative a 20?, she has +5 strength lower extremities, CMS intact Neuro: Alert awake and oriented x3 Const: Vital Signs, click to edit/add: Vital Signs - 24 hr 02/27/25 12:26 Temperature 97.4 F L Pulse Rate [Right Pulse Oximeter] 86 Respiratory Rate 18 Blood Pressure [Ri ght Upper Arm] 151/79 H Pulse Oximetry 97 Oxygen Delivery Me thod Room Air Course Course ED Course: 12:30 PM: aidet performed. Vitals are normal at this time, workup will include Lidoderm 5% patch applied to the area, 1 g Tylenol orally, will update imaging XR lumbar spine 2-3 views to rule out new compression fracture, obtain CBC and CMP rule out any electrolyte abnormalities. Will plan to treat symptomatically. No red flags on exam. Patient and daughter are in agreement. Reevaluation(s) Time of Reevaluation #1: 14:25 Reevaluation #1: Imaging: Impression: 1. New L4 compression fracture compared to 2015. Follow-up CT could be performed for evaluation. Patient was given the above care and did well, she is able to ambulate, plan would be to discharge, discussion about taking Tylenol 1 g every 6 hours for pain, apply Lidoderm patch 4% to the area, to make an appointment with primary care provider the next 5-7 days. Return precautions given. Vital Signs Vital signs: Initial Vital Signs Temperature 97.4 F L 02/27/25 12:26 Temperature Source Temporal Artery Scan 02/27/25 12:26 Pulse Rate 86 02/27/25 12:26 Pulse Rhythm Regular 02/27/25 12:26 Pulse Strength 3+ Normal 02/27/25 12:26 Respiratory Rate 18 02/27/25 12:26 Blood Pressure 151/79 H 02/27/25 12:26 Blood Pressure Mean 103 02/27/25 12:26 Blood Pressure Position Sitting 02/27/25 12:26 Pulse Oximetry 97 02/27/25 12:26 Oxygen Delivery Method Room Air 02/27/25 12:26 Vital Signs Temperature 97.4 F L 02/27/25 12:26 Pulse Rate 86 02/27/25 12:26 Respiratory Rate 18 02/27/25 12:26 Blood Pressure 151/79 H 02/27/25 12:26 Pulse Oximetry 97 02/27/25 12:26 Oxygen Delivery Method Room Air 02/27/25 12:26 Temperature 97.4 F L 02/27/25 12:26 Pulse Rate 86 02/27/25 12:26 Respiratory Rate 18 02/27/25 12:26 Blood Pressure 151/79 H 02/27/25 12:26 Pulse Oximetry 97 02/27/25 12:26 Oxygen Delivery Method Room Air 02/27/25 12:26 Medications Administered Medications: Discontinued Medications Generic Name Dose Route Start Last Admin Trade Name Benson PRN Reason Stop Dose Admin Acetaminophen 1,000 mg 02/27/25 12:57 02/27/25 13:06 Acetaminophen 500 Mg Tablet PO 02/27/25 12:58 1,000 mg ONCE ONE Administration Lidocaine 1 patch 02/27/25 12:56 02/27/25 13:06 Lidocaine 5% Patch TRANSDERMA 02/27/25 12:57 1 patch ONCE ONE Administration Protocol Medical Decision Making Lab Data Labs: Lab Results 02/27/25 Range/Units 13:45 WBC 6.31 (4.50-11.00) K/uL RBC 3.59 L (4.00-5.20) m/uL Hgb 10.9 L (12.0-16.0) gm/dL Hct 34.2 (33.0-51.0) % MCV 95 (80-100) fL MCH 30 (26-34) pg MCHC 32 (32-36) gm/dL RDW Coeff of Huy 13.8 (11.5-15.5) % Plt Count 120 L (140-440) K/uL Neut % (Auto) 65.5 (42.0-72.0) % Lymph % (Auto) 23.6 (20-44) % Blaine % (Auto) 8.2 (0.0-11.0) % Eos % (Auto) 1.9 (0.0-7.0) % Baso % (Auto) 0.8 (0.0-3.0) % Neut # (Auto) 4.13 (1.7-7.0) K/uL Lymph # (Auto) 1.49 (0.90-2.90) K/uL Blaine # (Auto) 0.50 (0.00-0.90) K/UL Eos # (Auto) 0.12 (0.00-0.50) K/uL Baso # (Auto) 0.05 (0.00-0.30) K/uL Abs Immat Gran (auto) 0.00 (0.00-0.30) K/uL Imm/Tot Granulo (auto) 0.0 % Sodium 137 (135-149) mmol/L Potassium 4.9 (3.6-5.1) mmol/L Chloride 103 (96-114) mmol/L Carbon Dioxide 28 (20-32) mmol/L Anion Gap 6 L (7-15) mEq/L BUN 30 (7-30) mg/dL Creatinine 1.5 (0.5-1.5) mg/dL Estimated Creat Clear 18.98 Estimated GFR 34 ml/min Glucose 105 (60-115) mg/dL Calcium 9.7 (8.4-10.6) mg/dL Total Bilirubin 0.3 (0.1-1.5) mg/dL AST 32 (12-35) U/L ALT 15 (4-35) U/L Alkaline Phosphatase 78 (40-150) U/L Total Protein 7.8 (6.0-8.3) g/dL Albumin 4.1 (3.3-5.0) g/dL Discharge Plan Discharge Clinical Impression: Compression fracture of lumbar spine, non-traumatic Patient Disposition: Home, Self-Care Condition: Improved Instructions: Vertebral Compression Fracture (ED) Additional Instructions: Lidoderm patch 4%, [id number], to apply every 12 hours, to take Tylenol 1000 mg every 6 hours for pain, to make a follow-up appoint with primary care provider over the next 5-7 days. Return if worsening symptoms. Activity Level: No Restrictions Prescriptions: No Action amlodipine 5 mg tablet 5 mg PO DAILY ascorbic acid (vitamin C) [Acerola C] 500 mg tablet,chewable 500 mg PO DAILY aspirin [Adult Aspirin Regimen] 81 mg tablet,delayed release (DR/EC) 81 mg PO DAILY Complex B-100 Tablet Extended Release 1 tab PO DAILY calcium carbonate-vitamin D3 600 mg-10 mcg (400 unit) capsule PO levothyroxine [Euthyrox] 75 mcg tablet 75 mcg PO DAILY melatonin Follow Up/Referrals: Katharine Del Angel DO [Primary Care Provider, Family Practice] Stand Alone Forms: [employer] Info Instructions
[2025-02-27] MEDS: LIDOCAINE 5% PATCH 1 PATCH TRANSDERMA (13:06)
[2025-02-27] MEDS: ACETAMINOPHEN 500 MG TABLET 1000 MG PO (13:06)
[2025-02-27 13:54] LABS: Hematocrit 34.2 % (33.0-51.0); Hemoglobin* 10.9 gm/dL (12.0-16.0); Immature Granulocytes Abs Auto 0.00 K/uL (0.00-0.30); Immature Granulocytes Pct Auto 0.0 %; Lymphocytes Absolute Auto 1.49 K/uL (0.90-2.90); Mean Corpuscular HGB Conc 32 gm/dL (32-36); Mean Corpuscular Hemoglobin 30 pg (26-34); Mean Corpuscular Volume 95 fL (80-100); RDW Coefficient of Variation % 13.8 % (11.5-15.5); Red Blood Count 3.59 m/uL (4.00-5.20); White Blood Count* 6.31 K/uL (4.50-11.00)
[2025-02-27 14:07] LABS: Albumin* 4.1 g/dL (3.3-5.0); Chloride* 103 mmol/L (96-114); Potassium* 4.9 mmol/L (3.6-5.1); Sodium* 137 mmol/L (135-149)
[2025-02-27 14:08] LABS: Slide Review Reflex No
[2025-02-27 14:10] LABS: Alanine Aminotransferase* 15 U/L (4-35); Alkaline Phosphatase* 78 U/L (40-150); Anion Gap 6 mEq/L (7-15); Aspartate Amino Transferase* 32 U/L (12-35); Bilirubin Total* 0.3 mg/dL (0.1-1.5); Blood Urea Nitrogen* 30 mg/dL (7-30); Carbon Dioxide* 28 mmol/L (20-32); Creatinine* 1.5 mg/dL (0.5-1.5); Est. Creatinine Clearance* 18.98; Estimated Glomerular Filt Rate 34 ml/min; Total Protein* 7.8 g/dL (6.0-8.3)
[2025-02-27 14:11] LABS: Calcium* 9.7 mg/dL (8.4-10.6); Glucose* 105 mg/dL (60-115)
== END 2025-02-27 14:55 | disposition home or self-care (01) ==
PROVIDERS: Emergency Provider Student in an Organized Health Care Education/Training Program; PCP Family Medicine
DX: M48.56XA Collapsed vertebra, not elsewhere classified, lumbar region, initial encounter for fracture (principal)
CPT/HCPCS: 36415; 72100; 80053; 85025; 99283; 99284; A9270